=== PATIENT | male | born 1955 | race Caucasian/White ===

== ENCOUNTER 2021-10-31 09:52 | Inpatient (IN) | payer OTHER ==
[~2021-10-31] VITALS: Ht 175.3 cm; Wt 85.7 kg
[~2021-10-31 09:52] MED LIST: CEFD300C3 PO; INSLAN SQ
[2021-10-31 10:23] LABS: BASOPHILS % (AUTO) 0.3 % (0.0-5.0); EOSINOPHILS % (AUTO) 0.1 % (0.0-8.0); HEMATOCRIT 42.9 % (42-54); LYMPHOCYTES % (AUTO) 17.3 % (21.0-51.0); MEAN CORPUSCULAR HEMOGLOBIN 28.9 pg (27.0-33.0); MEAN CORPUSCULAR HGB CONC 33.1 g/dL (32.0-36.0); MEAN CORPUSCULAR VOLUME 87.2 fL (79-99); MONOCYTES % (AUTO) 5.1 % (3.0-13.0); NEUTROPHILS % (AUTO) 76.6 % (40.0-77.0); PLATELET COUNT (AUTO) 252 K/uL (130-400); RED BLOOD CELL COUNT(AUTO) 4.92 MIL/uL (4.50-6.20); RED CELL DISTRIBUTION WIDTH 12.9 % (11.0-15.5); WHITE BLOOD COUNT (AUTO) 12.7 K/uL (4.8-10.8)
[2021-10-31] MEDS ORDERED: 0.9%NACL 1000ML 1,000 ML IV ONE ×2 (11:00→12:30)
[2021-10-31 11:02] LABS: ALBUMIN 4.8 g/dL (3.5-5.0)
[2021-10-31 11:14] LABS: CREATININE 13.9 mg/dL (0.5-1.5); POTASSIUM 6.2 mmol/L (3.5-5.1)
[2021-10-31] MEDS ORDERED: NA ZIRCON CYCLOSIL(LOKELMA 10GM) PO ONE ×2 (11:50→12:00)
[2021-10-31] MEDS ORDERED: ONDANSETRON 4MG INJ ONE (11:51)
[2021-10-31] MEDS ORDERED: ONDANSETRON 4MG INJ IVP ONE ×2 (12:00→12:30)
[2021-10-31] MEDS ORDERED: DiphenhydrAMINE HCL 50 MG/ML VIAL IV PRN (13:00)
[2021-10-31] MEDS ORDERED: NITROGLYCERIN 0.4 MG SL TAB SL PRN (13:00)
[2021-10-31] MEDS ORDERED: CEFEPIME HCL 2 GM VIAL IVP SCH (13:30)
[2021-10-31] MEDS: HEPARIN 5,000 UNIT VIAL SQ SCH ×2 (13:42→21:00)
[2021-10-31] MEDS: CEFEPIME HCL 1 GM VIAL IVP SCH (14:00)
[2021-10-31 14:20] VITALS: BP 111/46
[2021-10-31 15:35] LABS: ABG BASE EXCESS -18.4 mmol/L (-2.0-3.0); ABG HCO3 7.3 mmol/L (21.0-28.0); ABG OXYGEN SATURATION 97.8 % (95.0-99.0); ABG PCO2 19 mmHg (35-48)
[2021-10-31] MEDS ORDERED: SODIUM BICARB 50MEQ 50ML VIAL IV STA (15:46)
[2021-10-31] MEDS ORDERED: GLUCAGON 1MG KIT 1 MG ML IM PRN (16:00)
[2021-10-31] MEDS ORDERED: DEXTROSE 50%-WATER 50 ML DISP.SYRIN IV PRN (16:00)
[2021-10-31] MEDS ORDERED: ONDANSETRON 4MG INJ IVP PRN (16:30)
[2021-10-31] MEDS: LACTATED RINGERS 1000ML 1,000 ML IV SCH ×2 (17:23→23:56)
[2021-10-31] MEDS ORDERED: KAYEXALATE 15GM/60ML PO ONE (17:30)
[2021-10-31 19:00] VITALS: BP 124/73
[2021-10-31] MEDS: PANTOPRAZOLE 40 MG/VIAL IVP SCH (19:45)
[2021-10-31] MEDS: INSULIN HUMULIN R 100 UNIT/ML 3ML SQ SCH (23:55)
[2021-11-01] VITALS (7 sets, daily range): BP systolic 90–122; BP diastolic 45–68
[2021-11-01] MEDS: LACTATED RINGERS 1000ML 1,000 ML IV SCH ×2 (04:34→08:05)
[2021-11-01] MEDS: INSULIN HUMULIN R 100 UNIT/ML 3ML SQ SCH ×2 (06:00→11:47)
[2021-11-01 07:14] LABS: ALBUMIN 3.5 g/dL (3.5-5.0); TOTAL PROTEIN, SERUM 6.6 g/dL (6.0-8.3)
[2021-11-01 07:16] LABS: POTASSIUM 6.8 mmol/L (3.5-5.1)
[2021-11-01 07:17] LABS: CREATININE 14.3 mg/dL (0.5-1.5)
[2021-11-01] MEDS ORDERED: KAYEXALATE 15GM/60ML PO SCH (08:00)
[2021-11-01 08:35] LABS: LYMPHOCYTES % (MANUAL) 20 % (22-44); MAN.DIFF COMMENT-IMPRESSION MANUAL DIFFERENTIAL; MONOCYTES % (MANUAL) 5 % (2-9); SEGMENTED NEUTROPHILS % 75 % (40-70)
[2021-11-01 08:38] LABS: MEAN CORPUSCULAR HEMOGLOBIN 28.8 pg (27.0-33.0); MEAN CORPUSCULAR HGB CONC 33.6 g/dL (32.0-36.0); MEAN CORPUSCULAR VOLUME 85.7 fL (79-99); PLATELET COUNT (AUTO) 174 K/uL (130-400); RED BLOOD CELL COUNT(AUTO) 3.85 MIL/uL (4.50-6.20); RED CELL DISTRIBUTION WIDTH 13.2 % (11.0-15.5); WHITE BLOOD COUNT (AUTO) 14.6 K/uL (4.8-10.8)
[2021-11-01 08:39] LABS: PLATELET MORPHOLOGY COMMENT ADEQUATE
[2021-11-01] MEDS: HEPARIN 5,000 UNIT VIAL SQ SCH (08:44)
[2021-11-01 08:57] LABS: APPEARANCE,URINE TURBID (CLEAR); BILIRUBIN,URINE MODERATE (NEGATIVE); COLOR,URINE RED (YELLOW); GLUCOSE, URINE (UA) NEGATIVE (NEGATIVE); KETONES,URINE 15 mg/dL (NEGATIVE); LEUKOCYTE ESTERASE ,URINE SMALL (NEGATIVE); NITRATE,URINE POSITIVE (NEGATIVE); OCCULT BLOOD,URINE LARGE (NEGATIVE); PROTEIN,URINE 100 mg/dL (NEGATIVE)
[2021-11-01 09:05] LABS: AMPHET/METH SCREEN,URINE NEGATIVE (NEGATIVE); BARBITURATE SCREEN, URINE NEGATIVE (NEGATIVE); BENZODIAZEPINES SCREEN,URINE NEGATIVE (NEGATIVE); CANNABINOID SCREEN,URINE NEGATIVE (NEGATIVE); COCAINE SCREEN,URINE NEGATIVE (NEGATIVE); PHENCYCLIDINE SCREEN,URINE NEGATIVE (NEGATIVE); RBC,URINE TNTC /HPF (0-1)
[2021-11-01 09:06] LABS: BACTERIA,URINE Few /HPF (None Seen)
[2021-11-01 09:07] LABS: SQUAMOUS EPITHELIAL CELL,UR 0-2 /HPF (0-2)
[2021-11-01 09:39] LABS: ABG HCO3 13.9 mmol/L (21.0-28.0); ABG OXYGEN SATURATION 95.1 % (95.0-99.0); ABG PCO2 27 mmHg (35-48)
[2021-11-01] MEDS: 0.9%NACL 1000ML 1,000 ML IV SCH ×7 (11:27→21:54)
[2021-11-01 11:57] LABS: POTASSIUM 5.6 mmol/L (3.5-5.1)
[2021-11-01 12:40] LABS: CREATININE 13.1 mg/dL (0.5-1.5)
[2021-11-01 13:05] LABS: CREATININE,URINE RANDOM 128 mg/dL (30-135); SODIUM,URINE RANDOM 92 mmol/l (40-220)
[2021-11-01] MEDS: CEFEPIME HCL 1 GM VIAL IVP SCH (13:42)
[2021-11-01 20:09] LABS: HEMOGLOBIN A1C 10.8 % (4.0-6.0)
[2021-11-01] MEDS: PANTOPRAZOLE 40 MG/VIAL IVP SCH (21:54)
[2021-11-02] VITALS (7 sets, daily range): BP systolic 109–131; BP diastolic 60–77
[2021-11-02] MEDS: 0.9%NACL 1000ML 1,000 ML IV SCH ×4 (01:20→21:39)
[2021-11-02] MEDS ORDERED: MORPHINE 4 MG SYG ONE (03:14)
[2021-11-02] MEDS ORDERED: MORPHINE 4 MG SYG IVP ONE (03:30)
[2021-11-02] MEDS ORDERED: BENZOCAINE/MENTH/CETYLPYRD CL 1 EACH LOZENGE MM ONE (03:31)
[2021-11-02] MEDS ORDERED: BENZOCAINE/MENTH/CETYLPYRD CL 1 EACH LOZENGE MM PRN (04:00)
[2021-11-02 05:49] LABS: BASOPHILS % (AUTO) 0.7 % (0.0-5.0); EOSINOPHILS % (AUTO) 0.2 % (0.0-8.0); HEMATOCRIT 29.4 % (42-54); LYMPHOCYTES % (AUTO) 20.4 % (21.0-51.0); MEAN CORPUSCULAR HEMOGLOBIN 28.6 pg (27.0-33.0); MONOCYTES % (AUTO) 10.2 % (3.0-13.0); PLATELET COUNT (AUTO) 106 K/uL (130-400); WHITE BLOOD COUNT (AUTO) 6.1 K/uL (4.8-10.8)
[2021-11-02] MEDS: INSULIN HUMULIN R 100 UNIT/ML 3ML SQ SCH ×5 (06:00→21:45)
[2021-11-02] MEDS: TAMSULOSIN HCL 0.4 MG CAP.ER.24H PO SCH (08:11)
[2021-11-02 10:26] LABS: RETICULOCYTE % (AUTO) 0.95 % (0.42-2.23)
[2021-11-02 10:51] LABS: CREATINE KINASE, TOTAL 267 U/L (21-232); MYOGLOBIN 177 ng/mL (10-92)
[2021-11-02 11:01] LABS: CARBON DIOXIDE 21 mmol/L (21-32); CHLORIDE 102 mmol/L (101-111); CREATININE 5.7 mg/dL (0.5-1.5); GLOMERULAR FILTR. RATE CALC 11 mL/min (>60); GLUCOSE,RANDOM 171 mg/dL (70-105); PHOSPHORUS 3.8 mg/dL (2.5-4.9); POTASSIUM 4.1 mmol/L (3.5-5.1); SODIUM SERUM 137 mmol/L (136-145); THYROID STIMULATING HORMONE 0.45 uIU/mL (0.36-3.74); UREA NITROGEN, BLOOD 66 mg/dL (7-18)
[2021-11-02 11:02] LABS: % IRON SATURATION 45.7 % (30-44)
[2021-11-02] MEDS: CEFEPIME HCL 1 GM VIAL IVP SCH (14:32)
[2021-11-02] MEDS: PANTOPRAZOLE 40 MG/VIAL IVP SCH (21:05)
[2021-11-02] MEDS ORDERED: ACETAMINOPHEN 325 MG TAB ONE (23:03)
[2021-11-02] MEDS ORDERED: ACETAMINOPHEN 325 MG TAB PO PRN (23:30)
[2021-11-03] MEDS ORDERED: MAGNESIUM 2GM PREMIX 50ML 50 ML IV PRN
[2021-11-03] MEDS ORDERED: MAGNESIUM 2GM PREMIX 50ML 50 ML IV ONE (00:03)
[2021-11-03] MEDS: 0.9%NACL 1000ML 1,000 ML IV SCH ×3 (03:48→21:45)
[2021-11-03 04:28] VITALS: BP 116/66
[2021-11-03 05:10] LABS: HEMATOCRIT 27.6 % (42-54); MEAN CORPUSCULAR HEMOGLOBIN 29.2 pg (27.0-33.0); MEAN CORPUSCULAR HGB CONC 35.5 g/dL (32.0-36.0); MEAN CORPUSCULAR VOLUME 82.1 fL (79-99); PLATELET COUNT (AUTO) 108 K/uL (130-400); RED BLOOD CELL COUNT(AUTO) 3.36 MIL/uL (4.50-6.20); RED CELL DISTRIBUTION WIDTH 12.5 % (11.0-15.5); WHITE BLOOD COUNT (AUTO) 4.4 K/uL (4.8-10.8)
[2021-11-03 05:41] LABS: CREATININE 2.5 mg/dL (0.5-1.5); MAGNESIUM 1.4 mg/dL (1.80-2.40); PHOSPHORUS 2.4 mg/dL (2.5-4.9); POTASSIUM 3.7 mmol/L (3.5-5.1); TOTAL PROTEIN, SERUM 5.9 g/dL (6.0-8.3)
[2021-11-03] MEDS: INSULIN HUMULIN R 100 UNIT/ML 3ML SQ SCH ×4 (06:42→21:00)
[2021-11-03 07:15] VITALS: BP 145/73
[2021-11-03 07:16] LABS: BASOPHILS % (MANUAL) 2 % (0-2); EOSINOPHILS % (MANUAL) 3 % (1-6); LYMPHOCYTES % (MANUAL) 33 % (22-44); MONOCYTES % (MANUAL) 7 % (2-9); SEGMENTED NEUTROPHILS % 55 % (40-70)
[2021-11-03 07:17] LABS: MAN.DIFF COMMENT-IMPRESSION MANUAL DIFFERENTIAL; PLATELET MORPHOLOGY COMMENT SLIGHTLY DECREASED
[2021-11-03] MEDS: TAMSULOSIN HCL 0.4 MG CAP.ER.24H PO SCH (09:20)
[2021-11-03 10:13] LABS: OPIATES SCREEN URINE Negative ng/mL (Cutoff=300)
[2021-11-03 12:18] VITALS: BP 113/53
[2021-11-03 13:02] LABS: APPEARANCE,URINE CLEAR (CLEAR); BILIRUBIN,URINE NEGATIVE (NEGATIVE); COLOR,URINE YELLOW (YELLOW); GLUCOSE, URINE (UA) >=1000 mg/dL (NEGATIVE); KETONES,URINE 5 mg/dL (NEGATIVE); LEUKOCYTE ESTERASE ,URINE NEGATIVE (NEGATIVE); NITRATE,URINE NEGATIVE (NEGATIVE); OCCULT BLOOD,URINE LARGE (NEGATIVE); PH,URINE 6.5 (5.0-8.0); PROTEIN,URINE NEGATIVE (NEGATIVE); UROBILINOGEN,URINE 0.2 mg/dL (0.2-1.0)
[2021-11-03 13:14] LABS: BACTERIA,URINE Rare /HPF (None Seen); HYALINE CASTS, URINE 0-1 /LPF (0-1 /LPF); RBC,URINE 26-50 /HPF (0-1); SQUAMOUS EPITHELIAL CELL,UR 0-2 /HPF (0-2); WBC,URINE 0-1 /HPF (0-1)
[2021-11-03] MEDS: NEUTRA-PHOS PACKET 1 EACH PO SCH ×2 (15:19→21:47)
[2021-11-03 16:03] VITALS: BP 146/82
[2021-11-03 20:28] VITALS: BP 146/78
[2021-11-03] MEDS ORDERED: FAMOTIDINE 20MG TAB PO SCH (21:00)
[2021-11-03 23:45] VITALS: BP 146/88
[2021-11-04 06:15] LABS: HEMATOCRIT 30.4 % (42-54); MEAN CORPUSCULAR HEMOGLOBIN 28.8 pg (27.0-33.0); MEAN CORPUSCULAR HGB CONC 34.9 g/dL (32.0-36.0); MEAN CORPUSCULAR VOLUME 82.6 fL (79-99); PLATELET COUNT (AUTO) 112 K/uL (130-400); RED BLOOD CELL COUNT(AUTO) 3.68 MIL/uL (4.50-6.20); RED CELL DISTRIBUTION WIDTH 12.6 % (11.0-15.5); WHITE BLOOD COUNT (AUTO) 3.8 K/uL (4.8-10.8)
[2021-11-04 06:29] LABS: CREATININE 1.4 mg/dL (0.5-1.5); MAGNESIUM 1.3 mg/dL (1.80-2.40); PHOSPHORUS 2.2 mg/dL (2.5-4.9); POTASSIUM 4.1 mmol/L (3.5-5.1)
[2021-11-04 07:20] VITALS: BP 139/72
[2021-11-04] MEDS: INSULIN HUMULIN R 100 UNIT/ML 3ML SQ SCH (07:25)
[2021-11-04 07:43] LABS: BASOPHILS % (MANUAL) 2 % (0-2); LYMPHOCYTES % (MANUAL) 32 % (22-44); MONOCYTES % (MANUAL) 4 % (2-9); SEGMENTED NEUTROPHILS % 62 % (40-70)
[2021-11-04 07:44] LABS: MAN.DIFF COMMENT-IMPRESSION MANUAL DIFFERENTIAL; PLATELET MORPHOLOGY COMMENT SLIGHTLY DECREASED
[2021-11-04] MEDS: NEUTRA-PHOS PACKET 1 EACH PO SCH (09:00)
[2021-11-04] MEDS ORDERED: TAMS-1 PO (09:15)
[2021-11-04] MEDS: TAMSULOSIN HCL 0.4 MG CAP.ER.24H PO SCH (09:29)
[2021-11-04] MEDS ORDERED: NEUTRA-PHOS PACKET 1 EACH PO SCH (09:30)
[2021-11-04] MEDS ORDERED: MAGNESIUM OXIDE 400 MG TABLET PO ONE (09:39)
[2021-11-04] MEDS ORDERED: MAGNESIUM OXIDE 400 MG TABLET PO SCH ×2 (10:00)
== END 2021-11-04 10:00 | disposition home or self-care (01) | DRG 683 ==
LOC: EDH 09:52 → OBSVTOIN 12:07 → UNDOADMOB 12:07 → EDHIP 12:07 → INTOOBSV 12:07 → OBSVTOIN 12:58 → EDHIP 12:58 → 3CH 14:27
PROVIDERS: ADMIT Internal Medicine; ATTEND Internal Medicine
PROC: 0D9670Z Drainage of Stomach with Drainage Device, Via Natural or Artificial Opening (ICD-10-PCS; principal; 2021-11-01)
DX: N17.9 Acute kidney failure, unspecified (principal); E84.9 Cystic fibrosis, unspecified; K86.1 Other chronic pancreatitis; E87.2 Acidosis; E86.9 Volume depletion, unspecified; E78.5 Hyperlipidemia, unspecified; F02.80 Dementia in other diseases classified elsewhere, unspecified severity, without behavioral disturbance, psychotic disturbance, mood disturbance, and anxiety; I25.10 Atherosclerotic heart disease of native coronary artery without angina pectoris; E87.5 Hyperkalemia; K21.9 Gastro-esophageal reflux disease without esophagitis; N18.9 Chronic kidney disease, unspecified; I12.9 Hypertensive chronic kidney disease with stage 1 through stage 4 chronic kidney disease, or unspecified chronic kidney disease; E11.22 Type 2 diabetes mellitus with diabetic chronic kidney disease; E86.1 Hypovolemia; E86.0 Dehydration; Z66 Do not resuscitate; Z51.5 Encounter for palliative care; D64.9 Anemia, unspecified
CPT/HCPCS: 36415; 36600; 71045; 74018; 74176; 80048; 80053; 80305; 81001; 82550; 82570; 82728; 82746; 82803; 82948; 83036; 83540; 83550; 83605; 83690; 83735; 83874; 84100; 84132; 84145; 84300; 84443; 84484; 85025; 85045; 87088; 93005; 99291; C9113; G0378; J0692; J1644; J1815; J2270; J2405; J3475; J3490; J7030; J7120

== ENCOUNTER 2022-11-07 09:32 | Emergency (ER) | payer OTHER ==
[~2022-11-07] VITALS: Ht 180.3 cm; Wt 90.7 kg
[~2022-11-07 09:32] MED LIST changes: -CEFD300C3 PO; +TAMS-1 PO
[2022-11-07 09:33] VITALS: BP 145/86; PULSE 75; RESP 16
[2022-11-07] MEDS ORDERED: KETOROLAC 30MG VIAL (30MG/ML) IM ONE (10:00)
[2022-11-07] MEDS ORDERED: IBUP-2070 PO (11:11)
== END 2022-11-07 11:30 | disposition home or self-care (01) ==
LOC: EDH 09:32
DX: M79.642 Pain in left hand (principal); M25.532 Pain in left wrist; M19.042 Primary osteoarthritis, left hand; I10 Essential (primary) hypertension; Z88.5 Allergy status to narcotic agent
CPT/HCPCS: 99284; 73100; 73120; 96372; J1885

== ENCOUNTER 2024-11-29 19:22 | Inpatient (IN) | payer OTHER, MEDICARE ==
[~2024-11-29] VITALS: Ht 177.8 cm; Wt 85.5 kg
[~2024-11-29 19:22] MED LIST changes: +IBUP-1492 PO; -TAMS-1 PO; +TAMS-55 PO
--- NOTE | 2024-11-29 19:34 | ERN ---
ED Note History of Present Illness Stated Complaint: C/O LEFT ABD PAIN RADIATING TO BACK W/ N X V Chief Complaint: Abdominal Pain Time Seen by MD: 19:28 Dictation: This is a 69-year-old male who presented to the emergency room complaining of abdominal pain mostly in the left side of the abdomen radiating to the back. He also reported some nausea and vomitings. He stated that he was diagnosed with adult onset cystic fibrosis many years ago and has suffered from pancreatic problems. Patient had ERCP/MRCP at least 10-12 times. He had suffered from chronic pancreatitis in the past. Patient stated that he ate some crackers after which he began experiencing abdominal pain. Denied diarrhea or bleeding per rectum. No fever chills or rigors. No dysuria or hematuria. Temperature 99.1 pulse 89 respirations 20 blood pressure 115/79 with a pulse oximetry of 99% on room air Chronic medical problems include diabetes mellitus, hypertension, CKD, chronic pancreatitis, fatty liver with cirrhotic changes, coronary artery disease, gastroesophageal reflux disease. He stated that he did not have true allergy with codeine hydromorphone are morphine but indicated that they do not really work for him Allergies: Coded Allergies: morphine (Unverified Adverse Reaction, Severe, 11/02/21) codeine (Verified Adverse Reaction, Intermediate, NAUSEA/VOMITING, 09/14/20) hydromorphone (Unverified Adverse Reaction, Mild, 11/02/21) Home Meds Active Scripts Ibuprofen (Ibuprofen) 600 Mg Tablet, 600 MG PO Q6H PRN for PAIN, #30 TAB Prov:DIONE DIAZ MD 11/07/22 Tamsulosin HCl (Flomax) 0.4 Mg Cap.er.24h, 0.4 MG PO DAILY for 30 Days, #30 CAPSULE.DR 3 Refills Prov:SHIVAM CRONIN Jr., MD 11/04/21 Reported Medications Insulin Glargine,Hum.rec.anlog (Lantus) 100 Units/Ml Inj, 30 UNITS SQ HS, ML 09/14/20 Past Medical History Past Medical History: Arthritis, Diabetes-Type II, Hypertension, Other Additional Past Medical Hx: ACUTE ONSET CYSTIC FIBROSIS Surgical History: Other Surgical History Other: LEFT KNEE SX Family History: Negative Social History: Negative RN Note Reviewed/Agreed w/PFSH: Yes Review of System Dictation Constitutional: Negative for fever,chills, and weight loss Eyes: Negative for injury, pain,redness, and discharge ENT: Negative for injury,pain or swelling Cardiovascular: Negative for chest pain, palpitations, and edema Respiratory: Negative for shortness of breath, cough, and wheezing, Abdomen/GI: Positive for abdominal pain, nausea, vomiting, denied diarrhea, and constipation Back: Negative for injury and pain : Negative for injury, bleeding and discharge MS/Extremity: Negative for injury and deformity Skin: Negative for rash, and discoloration Neuro: Negative for headache, weakness, numbness, tingling, and seizure Psych: Negative for suicide ideation, homicidal ideation, and hallucinations Initial Vital Sign VS Vital Signs Date Time Temp Pulse Resp B/P (MAP) Pulse Ox O2 Delivery O2 Flow Rate FiO2 11/29/24 19:23 98.1 89 20 115/79 99 Room Air 11/29/24 20:00 0 21 Physical Exam Dictation General: awake, alert, NAD very talkative Head/Face: Normocephalic, atraumatic Eyes: PERRL, EOMI, vision at baseline ENT: oral cavity clear, TMs clear, no signs of infection Neck: Trachea midline, supple, no nuchal rigidity Cardiovascular: RRR, normal S1/S2, No MRGs, no JVD Respiratory: CTAB, no respiratory distress, No rales or wheezes Abdomen: Soft, tender to palpation, non-distended, normal bowel sounds, no guarding or rebound. Skin: Warm, dry, normal turgor, no rash MS/Extremity: Pulses equal, no cyanosis, neurovascular intact, FROM Neuro: COAx4, GCS 15, strength 5/5, CN 2-12 intact, normal cerebellar exam, normal gait, Psych: Normal behavior, mood, and affect normal Extremities-trace edema without any palpable cords, Homans sign is negative Results (Laboratory/Radiology) Laboratory/Radiology Laboratory Tests Test 11/29/24 19:57 White Blood Count 7.3 K/uL (4.8-10.8) Red Blood Count 4.79 MIL/uL (4.50-6.20) Hemoglobin 13.4 g/dL (14.0-18.0) L Hematocrit 39.8 % (42-54) L Mean Corpuscular Volume 83.1 fL (79-99) Mean Corpuscular Hemoglobin 28.0 pg (27.0-33.0) Mean Corpuscular Hemoglobin Concent 33.7 g/dL (32.0-36.0) Red Cell Distribution Width 13.1 % (11.0-15.5) Platelet Count 176 K/uL (130-400) Mean Platelet Volume 10.0 fL (7.5-10.5) Immature Granulocyte % (Auto) 0.4 % (0-1) Neutrophils (%) (Auto) 61.2 % (40.0-77.0) Lymphocytes (%) (Auto) 29.9 % (21.0-51.0) Monocytes (%) (Auto) 6.6 % (3.0-13.0) Eosinophils (%) (Auto) 1.2 % (0.0-8.0) Basophils (%) (Auto) 0.7 % (0.0-5.0) Neutrophils # (Auto) 4.5 K/uL (1.8-7.7) Lymphocytes # (Auto) 2.2 K/uL (1.0-4.8) Monocytes # (Auto) 0.5 K/uL (0.1-1.0) Eosinophils # (Auto) 0.09 K/uL (0.00-0.70) Basophils # (Auto) 0.05 K/uL (0.00-0.20) Absolute Immature Granulocyte (auto 0.03 K/uL (0-1) Nucleated Red Blood Cells 0.0 % (0.0-0.19) Sodium Level 138 mmol/L (136-145) Potassium Level 4.0 mmol/L (3.5-5.1) Chloride Level 102 mmol/L (101-111) Carbon Dioxide Level 23 mmol/L (21-32) Blood Urea Nitrogen 15 mg/dL (7-18) Creatinine 1.1 mg/dL (0.5-1.3) Glomerular Filtration Rate Calc 74 mL/min (>90) Random Glucose 173 mg/dL (70-105) H Total Calcium 8.9 mg/dL (8.5-10.1) Total Bilirubin 1.0 mg/dL (0.2-1.0) Aspartate Amino Transf (AST/SGOT) 19 U/L (10-37) Alanine Aminotransferase (ALT/SGPT) 18 U/L (12-78) Alkaline Phosphatase 166 U/L (50-136) H Total Creatine Kinase 40 U/L (21-232) # Total Protein 7.1 g/dL (6.0-8.3) Albumin 3.7 g/dL (3.5-5.0) Lipase 12 U/L (16-77) L Labs Reviewed?: Yes CT Scan Comment: REASON: evaluate pancreatitis. abdominal pain ORDERING PHYSICIAN: VINNY PARHAM MD PROCEDURE: ABD PEL WO - CT ABDOMEN/PELVIS W/O CONTRAST EXAM: CT Abdomen and Pelvis without IV contrast. CLINICAL HISTORY: Abdominal pain. Evaluate pancreatitis. TECHNIQUE: Thin collimated axial CT images of the abdomen and pelvis were obtained, with sagittal and coronal reformatted images also submitted. A CT scan is done according to ALARA (As Low As Reasonably Achievable). CONTRAST: None. COMPARISON: Prior CT abdomen and pelvis dated 10/31/21. FINDINGS: Unremarkable visualized lung parenchyma. No focal abnormality within the gallbladder, spleen, or adrenals. The liver is small with diffuse surface nodularity, suggesting liver cirrhosis. Diffuse severe fatty replacement of the pancreas. Bilateral renal cortical cysts measuring up to 2 cm on the right side with wall calcification and slightly increased density contents concerning proteinaceous or hemorrhagic content. The largest cortical cyst in the left kidney measures 1.9 cm. Bilateral mild perinephric fat stranding, suggesting renal parenchymal disease. There is no obvious bowel wall thickening. Bowel loops are normal in caliber without evidence of obstruction or ileus. The appendix is normal. There is no abnormality within the urinary bladder. Mild prostatomegaly. No lymphadenopathy. No free fluid. There is no acute osseous abnormality. IMPRESSIONS: No acute process in the abdomen or pelvis. Diffuse severe fatty replacement of the pancreas. No acute pancreatitis. Liver cirrhosis. Bilateral renal cortical cysts. Bilateral mild perinephric fat stranding, suggesting renal parenchymal disease. There is a mild interval in the size of the left upper pole cortical cyst and a mild interval reduction in the bilateral perinephric fat stranding. Mild prostatomegaly. /[place] DICTATED BY: ELLEN HARRELL Jr., MD DATE: 11/30/2447 ELECTRONICALLY SIGNED BY: ELLEN HARRELL Jr., MD DATE: 11/30/2447 ED Course ED Course Orders Procedure Category Date Status Time Cbc With Differential LAB 11/29/24 Complete 19:32 Comprehensive LAB 11/29/24 Complete Metabolic Panel 19:32 Urinalysis Profile LAB 11/29/24 Logged 19:32 0.9%Nacl 1000ml (Ns PHA 11/29/24 In Process 1000ml) 20:00 Ketorolac PHA 11/29/24 Complete Tromethamine 15mg/Ml 20:00 Ondansetron 4mg Inj PHA 11/29/24 Complete (Zofran 4mg Inj) 20:00 Pantoprazole 40mg Inj PHA 11/29/24 Complete (Protonix 40mg Inj 20:00 Creatine Kinase, Total LAB 11/29/24 Complete 19:32 Chest 1vw RAD 11/29/24 Resulted 19:32 Lipase LAB 11/29/24 Complete 19:32 Ct Abdomen/Pelvis W/O CT 11/29/24 Resulted Contrast 20:13 Hydromorphone 0.5mg PHA 11/30/24 Complete Syg (Dilaudid 0.5mg 00:30 Pharmacy PHA 11/30/24 Complete Communication 00:30 Admit Orders ADM 11/30/24 Transmitted 02:05 Edm Admit Bridge Order ADM 11/30/24 Transmitted 02:07 Current Medications Medications (Trade) Dose Ordered Sig/Uriel Route PRN Reason Start Time Stop Time Status Last Admin Dose Admin Hydromorphone HCl (DiLAUDid 0.5MG INJ) 0.5 mg ONCE ONCE IVP 11/30/24 00:30 11/30/24 00:31 DC 11/30/24 00:24 Ketorolac Tromethamine (toRADol) 15 mg ONCE ONCE IV 11/29/24 20:00 11/29/24 20:01 DC 11/29/24 21:00 Ondansetron HCl (zoFRAN 4MG INJ) 4 mg ONCE ONCE IVP 11/29/24 20:00 11/29/24 20:01 DC 11/29/24 20:59 Pantoprazole Sodium (PROTonix 40MG INJ) 40 mg ONCE ONCE IVP 11/29/24 20:00 11/29/24 20:01 DC 11/29/24 21:02 Pharmacy Profile Note (Pharmacy Communication) 1 each ONCE MISC 11/30/24 00:30 11/30/24 00:27 DC Sodium Chloride 1,000 ml @ 125 mls/hr ONCE ONCE IV 11/29/24 20:00 11/30/24 03:59 11/29/24 20:59 Vital Signs Date Time Temp Pulse Resp B/P (MAP) Pulse Ox O2 Delivery O2 Flow Rate FiO2 11/30/24 01:03 68 15 123/76 98 Room Air* 0 21 11/29/24 22:45 70 14 121/76 97 Room Air* 0 21 11/29/24 21:40 71 18 113/76 97 Room Air* 0 21 11/29/24 20:00 98.1 81 16 152/86 99 Room Air* 0 21 11/29/24 19:23 98.1 89 20 115/79 99 Room Air We will perform diagnostic labs, advanced imaging and administer medications according to the patient's complaint. Once the results are available, will review and personally interpreted the labs to rule out any acute life- threatening emergency the trach require immediate intervention and treatment. I will then re-evaluate the patient after treatment and diagnostic exams have return to determine whether the patient requires any further testing, can safely be discharged home or need further admission to hospital for additional treatment and evaluation. 8:12 p.m. CBC is with a normal limits 8:34 p.m. BNP 7 is with a normal limits LFTs showed alkaline phosphatase of 166. Lipase is 12 chest x-ray is unremarkable for any acute infiltrate. 10:[address] scan of the abdomen and pelvis is still pending 11:[address] scan of the abdomen and pelvis results are still pending. 12:45 p.m. no rash urticaria, no stridor or respiratory distress. Patient received Dilaudid and is resting comfortably. Initially patient refused opioids stating that they do not really help however he has pain was persistent and he was willing to try. Does not have true allergy to hydromorphone 1:40 p.m. I recommended admission to the hospital for pain control as well as to get an opinion from gastroenterology regarding pancreatic findings . He is agr eeable 2:00 a.m. patient accepted by Marek Medina, mid-level provider for hospitalist group for admission and further management Medical Decision Making MDM Differential diagnosis: Pancreatitis, gastritis, colitis, constipation, cholangitis Rationale: Tests considered and ordered secondary to shared decision making include: labs, ECG and radiology Previous outside records reviewed: Old ER visits. Risk of complication and/or morbidity or mortality of patient management: None Medications-Per medication reconciliation Need for hospitalization: Patient does meet criteria for hospitalization. Need for emergency major/minor surgery: No There are no social concerns with this patient. Prescription drug management Prescriptions will include symptomatic care Patient's prior external medical records from other ER visits were reviewed by me as indicated. Prior testing and results from previous visits were reviewed. Prior tests were taken into account with medical decision making and resource utilization, independent historian/historians were used to obtain complete medical history. I independently interpreted the test that were performed, results were reviewed by me and considered findings on radiology if ordered. Medical management and examination interpretation discussions were had by me with other qualified healthcare professionals as indicated for the patient's care. Problem List Problem List: (1) Diabetes mellitus (2) Fatty pancreas (3) Cystic fibrosis (4) Hypertension (5) Intractable abdominal pain DX & DISP Disposition: Inpatient Decision to Admit Time: 01:33 Departure Impression: Primary Impression: Fatty pancreas Additional Impressions: Cystic fibrosis, Diabetes mellitus, Intractable abdominal pain Condition: Stable Additional Instructions: Patient was informed of all the diagnostic labs and procedures conducted in the emergency room today and demonstrated understanding of the results. I personally reviewed and interpreted all the diagnostic exams performed in the ER today. The patient will be admitted to the hospital for further treatment and evaluation. Disposition-admit to facility Condition-stable/guarded Course-uncertain at this time Pain status-decreased Assessment-exam unchanged Admission Certification- I certify that the patients status is appropriate and is based on my best clinical judgment and the patient's condition as documented in the medical records Referrals: SELF,REFERRAL (PCP) VINNY PARHAM MD Nov 29, 2024 19:34
--- NOTE | 2024-11-29 19:48 | NUR ---
PT CARE ASSUMED AT THIS TIME
[2024-11-29 20:08] LABS: IMMATURE GRANULOCYTE ABSOLUTE 0.03 K/uL (0-1); NUCLEATED RED BLOOD CELLS 0.0 % (0.0-0.19); PLATELET COUNT (AUTO) 176 K/uL (130-400); RED BLOOD CELL COUNT(AUTO) 4.79 MIL/uL (4.50-6.20); RED CELL DISTRIBUTION WIDTH 13.1 % (11.0-15.5); WHITE BLOOD COUNT (AUTO) 7.3 K/uL (4.8-10.8)
[2024-11-29 20:17] LABS: CREATININE 1.1 mg/dL (0.5-1.3); GLOMERULAR FILTR. RATE CALC 74.0 mL/min (>90); GLUCOSE,RANDOM 173.0 mg/dL (70-105); SODIUM SERUM 138.0 mmol/L (136-145); UREA NITROGEN, BLOOD 15.0 mg/dL (7-18)
[2024-11-29 20:25] LABS: ASPARTATE AMINOTRANSFERASE 19.0 U/L (10-37); CREATINE KINASE, TOTAL 40.0 U/L (21-232); TOTAL PROTEIN, SERUM 7.1 g/dL (6.0-8.3)
[2024-11-29] MEDS: 0.9%NACL 1000ML 1,000 ML IV ONE (20:59)
--- NOTE | 2024-11-29 21:34 | ERN ---
[facility] Emergency Response Event Date: [11/29/2024 ] Event Time: [ 20.35] Code Status: [Full code ] Type of Arrest: [Pea arrest ] Events Prior to Arrest: [Acute respiratory failure with hypoxia secondary to pneumonia on BiPAP therapy ] RTs, multiple nurses, charge nurse, nursing electric repair supervisor provider staff including myself participated in the CPR. Event: [ Patient's daughter was in the room and patient became unresponsive and Reji his RN recognized that the patient did not have a pulse. [facility] was called immediately and CPR per ACLS protocol was initiated. Patient received multiple rounds of epinephrine initially 1 dose of atropine. CPR was continued and patient was bagged with a bag-valve mask. Patient had melody bright red blood from his oral cavity which was suctioned. Patient also received 2 amps of bicarb total, 1 amp of calcium gluconate and 2 g of Mag sulfate. Patient eventually went into ventricular fibrillation and he was shocked with 300 joules. CPR was continued and Daniele was achieved. Patient had a heart rate of 89, blood pressure of 149 over 80s. He was moving his arm spontaneously and trying to reach ET tube. Patient was placed on Levophed and IV fluids as the CPR started. And once the ROSC was achieved at 8 hrs, patient was intubated at 0 hrs. Nasogastric tube was placed through the left nares. Bedside confirmation of the endotracheal tube was done by good color change on the capnometer and bilateral good breath sounds to auscultation. NG tube placement was also confirmed with the air sounds heard in the epigastrium. Emergent central line was placed in the left femoral area without problems and please see the separate procedure notes for intubation and central line. Stat portable chest x-ray was obtained which showed adequate placement of the endotracheal tube and the NG tube. No evidence of any pneumothorax noted. Patient's daughter was updated at bedside throughout the CPR on the progress. Sarah JONESCP Attending physician in ER SARAH PARHAM MD Nov 29, 2024 21:33
--- NOTE | 2024-11-29 21:37 | ERN ---
Endotracheal intubation note Event Date: [ 11/29/2024] Event Time: [8:50 p.m. ] Code Status: [Full code ] Procedure note-endotracheal intubation 8:50 p.m. Indication for the procedure-acute respiratory failure with hypoxia, cardiac arrest Premedication and anesthesia-none and CPR was in progress Performing physician-Vinny HAYS Procedure-deemed emergent during the code and after time-out and pause, 8 ET tu be was advanced into the trachea after well visualization of the vocal cords under glide scope MAC 3 blade guidance. Moderate amount of blood was in the posterior oropharynx which needed suctioning. Patient's dentures were removed prior to the procedure Bedside confirmation was done with good breath sounds bilaterally to auscultation and excellent color change on the capnometer. ET tube was secured in place at 26 cm at the lip Postprocedure chest x-ray-ET tube placement was confirmed inappropriate position Recommendations-patient placed on mechanical ventilator-discussed settings with the RT VINNY PARHAM MD Nov 29, 2024 21:37
--- NOTE | 2024-11-29 21:41 | ERN ---
Triple-lumen catheter placement Event Date: [11/29/2024 ] Event Time: [9 p.m. ] Code Status: [ Full code] Procedure [id number] catheter placement-left femoral area Indication-acute respiratory failure with hypoxia, right lung pneumonia, pulseless electrical activity cardiac arrest Performing physician-Dr. Parham Premedication and anesthesia- 1% lidocaine local Procedure-procedure was deemed emergent, After an appropriate time-out and pause, patient's left femoral area was prepped and draped in a sterile fashion using modified Seldinger technique right femoral vein was cannulated and a guidewire was advanced. Subsequently using the dilator and skin incision at the site of insertion a tract was created and a triple-lumen catheter was advanced over the guidewire with removal of the guidew willi. Excellent blood return from all 3 ports was noted. Ports were flushed and the catheter was sutured to skin in place. The antibiotic disc was placed at the insertion site and dressing was applied. No immediate complications. Patient tolerated the procedure extremely well Recommendations to monitor the femoral site and once the hemodynamics improve, to consider removal of the triple-lumen catheter to avoid complications VINNY PARHAM MD Nov 29, 2024 21:41
--- NOTE | 2024-11-29 22:04 | HMCIMG ---
EXAM: CR Chest, 1 View. CLINICAL HISTORY: nausea vomitings COMPARISON: None provided. FINDINGS: LUNGS: The lungs show no infiltrate or other acute finding. PLEURAL SPACES: No evidence of pleural effusion or pneumothorax. MEDIASTINUM: Cardiac size and mediastinal contours within normal limits. BONES: No aggressive appearing osseous lesion seen. IMPRESSION: No acute cardiopulmonary pathology is evident. /[place]
--- NOTE | 2024-11-29 22:42 | NUR ---
URINAL PROVIDED TO PT FOR URINE COLLECTION
--- NOTE | 2024-11-29 23:41 | NUR ---
PT REQUEST TO SPEAK TO ED MD PARHAM. ED MD PAHRAM MADE AWARE.
--- NOTE | 2024-11-29 23:49 | HMCIMG ---
EXAM: CT Abdomen and Pelvis without IV contrast. CLINICAL HISTORY: Abdominal pain. Evaluate pancreatitis. TECHNIQUE: Thin collimated axial CT images of the abdomen and pelvis were obtained, with sagittal and coronal reformatted images also submitted. A CT scan is done according to ALARA (As Low As Reasonably Achievable). CONTRAST: None. COMPARISON: Prior CT abdomen and pelvis dated 10/31/21. FINDINGS: Unremarkable visualized lung parenchyma. No focal abnormality within the gallbladder, spleen, or adrenals. The liver is small with diffuse surface nodularity, suggesting liver cirrhosis. Diffuse severe fatty replacement of the pancreas. Bilateral renal cortical cysts measuring up to 2 cm on the right side with wall calcification and slightly increased density contents concerning proteinaceous or hemorrhagic content. The largest cortical cyst in the left kidney measures 1.9 cm. Bilateral mild perinephric fat stranding, suggesting renal parenchymal disease. There is no obvious bowel wall thickening. Bowel loops are normal in caliber without evidence of obstruction or ileus. The appendix is normal. There is no abnormality within the urinary bladder. Mild prostatomegaly. No lymphadenopathy. No free fluid. There is no acute osseous abnormality. IMPRESSIONS: No acute process in the abdomen or pelvis. Diffuse severe fatty replacement of the pancreas. No acute pancreatitis. Liver cirrhosis. Bilateral renal cortical cysts. Bilateral mild perinephric fat stranding, suggesting renal parenchymal disease. There is a mild interval in the size of the left upper pole cortical cyst and a mild interval reduction in the bilateral perinephric fat stranding. Mild prostatomegaly. /[place]
[2024-11-30] MEDS ORDERED: PHARMACY COMMUNICATION MISC SCH (00:30)
--- NOTE | 2024-11-30 02:07 | HP ---
History of Present Illness Reason for Visit: abdominal pain Referring MD: kamari History of Present Illness Mr. Cuba is a 69-year-old male that was seen and examined today on 11/30/2024. Patient reports that he came to the emergency department with a chief complaint of abdominal pain. Onset was three days ago. Location is epigastric. Duration is on and off. Character is described as sharp. There was no alleviating factors. Patient believes that symptoms are aggravated by a T8-T4 compression fracture that he has. Patient states that whenever his back pain is exacerbated he also gets abdominal pain. Patient reports associated nausea and vomiting x2 episodes today and two episodes each day for the last three days. Today in the emergency department CBC unremarkable, chemistry unremarkable, no urinalysis has been collected or sent to lab. CT of abdomen and pelvis shows no acute findings. Liver cirrhosis. Severe fatty infiltration of the pancreas. Bilateral perinephric fat stranding. Emergency room physician recommended that patient be admitted with a diagnosis of pyelonephritis and fatty infiltration of the pancreas so that he could be evaluated by Gastroenterology Service. Past Medical History Patient History: Carcinomas BROTHER (HODKINS LYMPHOMA (ON REMISSION)) SISTER (OVARIAN CANCER) Chronic obstructive pulmonary disease FATHER (AMPHYSEMA) Diabetes mellitus MOTHER Hypertension MOTHER No Family History of: Alzheimer's disease Asthma Cardiovascular disease Completed stroke Immunocompromised state Sudden ADDITIONAL PAST MEDICAL HISTORY: [ "adult onset cystic fibrosis diagnosed by a famous doctor in [place]", Diabetes mellitius type2, hypertension, arthritis, T8-T9 compression fracture] SOCIAL HISTORY: [Negative for smoking, alcohol use. Patient admits to marijuana use. Patient lives alone. Patient is typically independent of all his ADLs.] SURGICAL HISTORY: [Left knee surgery, hydrocele repair] Review of Systems Allergies: Coded Allergies: morphine (Unverified Adverse Reaction, Severe, 11/02/21) codeine (Verified Adverse Reaction, Intermediate, NAUSEA/VOMITING, 09/14/20) hydromorphone (Unverified Adverse Reaction, Mild, 11/02/21) Scheduled Insulin Glargine,Hum.rec.anlog (Lantus), 30 UNITS SQ HS, (Reported) Tamsulosin HCl (Flomax), 0.4 MG PO DAILY Scheduled PRN Ibuprofen (Ibuprofen), 600 MG PO Q6H PRN for PAIN Exam Vital Signs Vital Signs Date Time Temp Pulse Resp B/P (MAP) Pulse Ox O2 Delivery O2 Flow Rate FiO2 11/30/24 01:03 68 15 123/76 98 Room Air* 0 21 11/29/24 20:00 98.1 Assessment/Plan ASSESSMENT: [ Pyelonephritis, POA, by CT on 11/30/2024 Fatty infiltration of the pancreas, POA, by CT on 11/30/2024 Liver cirrhosis, POA, by CT on 11/30/2024 Diabetes mellitius type2 Hypertension Arthritis T8-T9 compression fracture Adult onset cystic fibrosis] PLAN: [ Admit patient to medical floor as inpatient status. Empiric antibiotic therapy with Rocephin. Check urinalysis, follow up with the results. Send urine culture if urinalysis positive for leukocyte esterase, nitrate, WBCs greater than 6-10 or 6-10 Consult Gastroenterology for evaluation and recommendations in reference to patient's fatty infiltration of the pancreas Keep patient NPO As needed analgesia with hydromorphone, patient tolerated a dose of hydromorphone in the emergency department. Check preprocedure labs, CBC, BMP, magnesium, phosphorus, PTT, UA, type and screen, EKG, CXR Check ammonia level, follow up with the results Start lactulose 20 g/30 mL by mouth twice daily Monitor intake and output every shift Weight patient daily 1500 mL daily fluid restriction Check glucometer a.c. and HS Humulin R sliding scale Start 1800 ADA diet once patient is no longer NPO Check hemoglobin A1c in a.m. Consider resuming home medications once they have been reconciled. For now, Hydralazine 10 mg IV every 4 hours for systolic blood pressure greater than 160 mmHg At time of admission home medications has been reconciled GI prophylaxis famotidine DVT prophylaxis with Curly's and SCDs ADVANCED CARE PLANNING 1. Which of the following were discussed? Hospice Care - Yes Therapeutic options - yes Advance Directives - Yes - patient states he does not have any advance directives in place at this time, however his twin sister, Cynthia can make decisions for him if he becomes unable although she was recently placed on hospice care she is still able to make decisions for him. Other discussions - patient wishes to remain a full code at this time 2. Discussed with who? Patient 3. Voluntary nature of this service was explained to the patient? Yes 4. Amount of time spent - ___16 minutes____ 5. Reviewed by Physician? (if this service was performed by NPP) Yes This document was generated in part using voice recognition software, occasional wrong word or sound alike substitutions may have occurred due to the inherent limitations of voice recognition software. Read the chart carefully and recognize using context, where the substitutions have occurred. Although every effort was made to edit the content, early head start director and typing errors may occur ATTESTATION BY PHYSICIAN I have seen and examined the patient. I reviewed the documentation, medical decision making, and treatment plan as noted by the mid-level provider above. I agree with the findings and plan of care. MITCHELL MUÑOZ [facility] Nov 30, 2024 02:07
--- NOTE | 2024-11-30 02:53 | NUR ---
ATTEMPT TO GIVE REPORT AT THIS TIME. NOT SUCCESSFUL.
--- NOTE | 2024-11-30 02:57 | NUR ---
REPORT GIVEN TO SAULO PAPPAS AT THIS TIME
[2024-11-30 03:03] VITALS: O2SAT 98
[2024-11-30 03:30] VITALS: BP 128/84; PULSE 67; RESP 16; TEMP 98.4
[2024-11-30 03:33] LABS: ADD UA MICROSCOPIC YES; APPEARANCE,URINE CLEAR (CLEAR); GLUCOSE, URINE (UA) >=1000 mg/dL (NEGATIVE); LEUKOCYTE ESTERASE ,URINE NEGATIVE Leu/uL (NEGATIVE); NITRATE,URINE NEGATIVE (NEGATIVE); OCCULT BLOOD,URINE NEGATIVE (NEGATIVE)
[2024-11-30] MEDS: LACTATED RINGERS 1000ML 1,000 ML IV SCH (03:41)
[2024-11-30 03:51] VITALS: BP 139/69; PULSE 72; RESP 16; TEMP 98.2
--- NOTE | 2024-11-30 03:56 | NUR ---
PATIENT ASKED ME TO BRING HIM ICE CHIPS, I TOLD HIM THAT THE PROVIDER HAS ORDERED HIM TO BE NPO, NOTHING BY MOUTH, HE SAID "JUST GIVE ME GUN SO I CAN KILL MYSELF I DONT WANT TO LIVE". I INFORMED HIM THAT HE CAN REFUSE THE ORDER WITH A REFUSAL FORM AND HE SAID "NO THANKS JUST LET ME ".
--- NOTE | 2024-11-30 04:00 | NUR ---
MITCHELL MUÑOZ PHOTOGRAPHIC ENLARGER OPERATOR PRESENT NOTIFIED OF PATIENTS SUICIDAL IDEATIONS NEW ORDERS RECEIVED.
--- NOTE | 2024-11-30 05:24 | NUR ---
PATIENT SPOKE WITH VALERIA CHARGE NURSE SAYS THAT HE DID NOT APPRECIATE OUR CARE AND THAT WE LACK COMPASSION BECAUSE "WE CHAINED HIM UP AND SENT IN A MAN TO WATCH HIM ALL BECAUSE HE SAID A FEW WRONG WORDS." PATIENT STATED THAT HE WANTED TO LEAVE AND SEEK CARE AT A DIFFERENT HOSPITAL. PATIENT WAS GIVEN AMA FORM TO SIGN, HE REFUSED TO SIGN. VALERIA RN COSIGNED THE FORM WITH ME. I REMOVED PATIENT'S IV PRIOR TO DISCHARGE. HIS MEDICATIONS AND OTHER BELONGINGS WERE GIVEN BACK TO HIM BEFORE HE LEFT.
[2024-11-30 05:30] LABS: IMMATURE GRANULOCYTE ABSOLUTE 0.02 K/uL (0-1); NUCLEATED RED BLOOD CELLS 0.0 % (0.0-0.19); PLATELET COUNT (AUTO) 162 K/uL (130-400); RED BLOOD CELL COUNT(AUTO) 4.46 MIL/uL (4.50-6.20); RED CELL DISTRIBUTION WIDTH 13.0 % (11.0-15.5); WHITE BLOOD COUNT (AUTO) 6.0 K/uL (4.8-10.8)
[2024-11-30 05:31] LABS: INR 1.07 (0.85-1.15)
[2024-11-30 05:34] LABS: CREATININE 1.0 mg/dL (0.5-1.3); GLOMERULAR FILTR. RATE CALC 82.0 mL/min (>90); GLUCOSE,RANDOM 118.0 mg/dL (70-105); PHOSPHORUS 3.3 mg/dL (2.5-4.9); SODIUM SERUM 141.0 mmol/L (136-145); UREA NITROGEN, BLOOD 14.0 mg/dL (7-18)
--- NOTE | 2024-11-30 05:50 | NUR ---
CALLED [facility] DEPART[facility] TO CONDUCT A WELLNESS CHECK ON THE PATIENT.
[2024-11-30] MEDS ORDERED: LACTULOSE 20 GM/30 ML UDCUP PO SCH (09:00)
[2024-11-30] MEDS ORDERED: FAMOTIDINE 20MG TAB PO SCH (09:00)
== END 2024-11-30 05:24 | disposition left against medical advice (07) | DRG 690 ==
LOC: EDH 19:22 → EDHIP 11-30 02:05 → 3BH 11-30 03:09
PROVIDERS: ADMIT Internal Medicine; ATTEND Internal Medicine
DX: N12 Tubulo-interstitial nephritis, not specified as acute or chronic (principal); E84.9 Cystic fibrosis, unspecified; M48.54XA Collapsed vertebra, not elsewhere classified, thoracic region, initial encounter for fracture; K74.60 Unspecified cirrhosis of liver; I10 Essential (primary) hypertension; M19.90 Unspecified osteoarthritis, unspecified site
CPT/HCPCS: 36415; 71045; 74176; 80048; 80053; 81001; 82140; 82550; 83036; 83690; 83735; 84100; 85025; 85610; 85730; 96374; 96375; 99285; G0378; J0696; J1171; J1885; J2405; J2470; J7030